=== PATIENT | male | born 1955 | race Caucasian/White ===

== ENCOUNTER 2018-11-13 23:23 | Inpatient (IN) | payer BC ==
[~2018-11-13] VITALS: Ht 185.4 cm; Wt 91.0 kg
[2018-11-13] MEDS ORDERED: AMLO10TA5 PO (23:34)
[2018-11-13 23:58] LABS: INR 1.01
[2018-11-13 23:59] LABS: PARTIAL THROMBOPLASTIN TIME 27.1 SECONDS (25.0-38.4)
[2018-11-14] VITALS (10 sets, daily range): BP systolic 120–185; BP diastolic 70–94
--- NOTE | 2018-11-14 00:09 | REPVR ---
EXAM: CT Head Without Contrast EXAM DATE/TIME: 11/13/2018 11:47 PM CLINICAL HISTORY: 63 years old, male; Unresponsive; Additional info: CVA - nursing interventions must not delay CT TECHNIQUE: Imaging protocol: Computed tomography images of the head without contrast. Radiation optimization: All CT scans at this facility use at least one of these dose optimization techniques: automated exposure control; mA and/or kV adjustment per patient size (includes targeted exams where dose is matched to clinical indication); or iterative reconstruction. Other technique: STROKE PROTOCOL was implemented. COMPARISON: No relevant prior studies available. FINDINGS: Brain: There is no evidence for an acute large vessel territorial infarct, intracranial hemorrhage, mass, mass effect, or herniation. There is a wedge-shaped area of low-attenuation in the right parietal lobe with associated ex vacuo dilatation of the right lateral ventricle, which is compatible with a chronic infarct. There are mild non-specific foci of low attenuation in the periventricular white matter, which are likely the sequela of chronic small vessel ischemic injury. Brainstem: Unremarkable. Midline shift: There is no midline shift. Ventricles: The ventricles are moderately dilated in proportion to the sulci, which is compatible with moderate generalized cerebral volume loss. Bones/joints: Unremarkable. No acute fracture. Sinuses: Visualized sinuses are unremarkable. No fluid levels. Mastoid air cells: Visualized mastoid air cells are well aerated. No mastoid effusion. Soft tissues: Unremarkable. IMPRESSION: 1. No acute intracranial abnormality. 2. Chronic infarct involving the right parietal lobe. 3. Mild periventricular white matter changes, which are likely the sequela of chronic small vessel ischemic injury. ASSESSMENT: ASPECTS ([facility]ianna Stroke Program Early CT Score) is 10. Electronically signed by: Bakari Calderon On 11/14/2018 00:08:33 AM
[2018-11-14 00:10] LABS: BLOOD UREA NITROGEN 19 MG/DL (7-18); CALCIUM LEVEL 9.4 MG/DL (8.8-10.2); CARBON DIOXIDE LEVEL 26 MEQ/L (21-32); CHLORIDE LEVEL 102 MEQ/L (98-107); CPK CREATINE PHOSPHOKINASE 637 U/L (39-308); CREATININE FOR GFR 1.18 MG/DL (0.70-1.30); GLOMERULAR FILTRATION RATE > 60.0 (>49); GLUCOSE, FASTING 148 MG/DL (70-100); MB/CK RELATIVE INDEX 0.78 (< OR =4); POTASSIUM SERUM 4.2 MEQ/L (3.5-5.1); SODIUM LEVEL 136 MEQ/L (136-145); TROPONIN I < 0.02 NG/ML (< 0.10)
[2018-11-14 00:13] LABS: BASO # 0.1 10^3/uL (0.0-0.2); BASO % 0.5 % (0.0-1.0); EOS % 0.1 % (0.0-3.0); HEMATOCRIT 41.6 % (42.0-52.0); HEMOGLOBIN 14.8 g/dl (13.5-17.5); LYMPH # 0.6 10^3/uL (1.5-4.5); LYMPH % 6.6 % (24.0-44.0); MEAN CORPUSCULAR HEMOGLOBIN 33.3 pg (27.0-33.0); MEAN CORPUSCULAR HGB CONC 35.6 g/dl (32.0-36.5); MEAN CORPUSCULAR VOLUME 93.5 fl (80.0-96.0); MONO # 0.6 10^3/uL (0.0-0.8); MONO % 5.6 % (0.0-5.0); NEUTROPHILS # 8.4 10^3/uL (1.8-7.7); NEUTROPHILS % 86.5 % (36.0-66.0); PLATELET COUNT, AUTOMATED 275 10^3/uL (150-450); RED BLOOD COUNT 4.45 10^6/uL (4.30-6.10); WHITE BLOOD COUNT 9.8 10^3/uL (4.0-10.0)
--- NOTE | 2018-11-14 00:17 | REPVR ---
EXAM: CT Cervical Spine Without Contrast EXAM DATE/TIME: 11/13/2018 11:47 PM CLINICAL HISTORY: 63 years old, male; Injury or trauma; Fall; Initial encounter; Blunt trauma TECHNIQUE: Imaging protocol: Computed tomography images of the cervical spine without contrast. Coronal and sagittal reformatted images were created and reviewed. Radiation optimization: All CT scans at this facility use at least one of these dose optimization techniques: automated exposure control; mA and/or kV adjustment per patient size (includes targeted exams where dose is matched to clinical indication); or iterative reconstruction. COMPARISON: No relevant prior studies available. FINDINGS: Vertebrae: There is straightening of the normal cervical lordosis. The atlantooccipital alignment is normal. The atlantoaxial alignment is normal. There are degenerative changes of the atlantoaxial joint. There is no fracture. The vertebral body heights are preserved. There is no cervical rib. C2-C3: The disc height is preserved. There is a broad central protrusion. No spinal canal stenosis or neural foraminal stenosis is identified. The facet joints are normal. C3-C4: The disc height is preserved. There is a broad-based posterior disc osteophyte complex, bilateral uncovertebral hypertrophy, severe osteoarthritis of the right facet joint, and mild osteoarthritis of the left facet joint. There is mild spinal canal stenosis, [id number] right neural foraminal stenosis, and mild left neural foraminal stenosis. C4-C5: The disc height is preserved. There is a broad-based posterior protrusion, severe osteoarthritis of the left facet joint, mild osteoarthritis of the right facet joint, and endplate spurs projecting anteriorly. There is mild left neural foraminal stenosis. No spinal canal stenosis or right neural foraminal stenosis is noted. C5-C6: The disc height is preserved. There is a 3 mm grade 1 anterolisthesis of C5 on C6 with uncovering of the disc posteriorly, severe osteoarthritis of the right facet joint, and endplate spurs projecting anteriorly. There is mild to moderate right neural foraminal stenosis. No spinal canal stenosis or left neural foraminal stenosis is noted. C6-C7: There is moderate loss of disc height, a broad-based posterior disc osteophyte complex, left uncovertebral hypertrophy, and endplate spurs projecting anteriorly. There is mild spinal canal stenosis and mild left neural foraminal stenosis. No right neural foraminal stenosis is noted. C7-T1: The disc height is preserved. No disc herniation, spinal canal stenosis, or neural foraminal stenosis is identified. The facet joints are normal. Soft tissues: Unremarkable. No soft tissue fluid collection is noted. Prevertebral Space: No prevertebral soft tissue swelling is noted. Vasculature: There are atherosclerotic calcifications of the carotid bulbs. IMPRESSION: 1. No fracture in the cervical spine. 2. C3-C4: Mild spinal canal stenosis, moderate to severe right neural foraminal stenosis and mild left neural foraminal stenosis. 3. C4-C5: Mild left neural foraminal stenosis. 4. C5-C6: Mild to moderate right neural foraminal stenosis. 5. C6-C7: Mild spinal canal stenosis and mild left neural foraminal stenosis. Electronically signed by: Bakari Calderon On 11/14/2018 00:17:27 AM
[2018-11-14 00:40] LABS: ETHYL ALCOHOL (ETHANOL) < 0.003 % (0.000-0.010)
[2018-11-14] MEDS ORDERED: MULTIVITAMIN -ADULT INJECTION 10 ML, THIAMINE INJection 100 MG, FOLIC ACID 1 MG in NS 1... IV ONE (00:45)
[2018-11-14 00:57] LABS: ALBUMIN 3.7 GM/DL (3.2-5.2); ALT/SGPT 46 U/L (12-78); BILIRUBIN,DIRECT 0.3 MG/DL (0.0-0.2); TOTAL PROTEIN 7.2 GM/DL (6.4-8.2)
[2018-11-14] MEDS ORDERED: LORazepam 2 MG TAB PO ONE (01:30)
[2018-11-14] MEDS ORDERED: ONDANSETRON 4MG/2ML VIAL (J2405) IV PRN (01:30)
--- NOTE | 2018-11-14 01:34 | HPEPDOC ---
[facility] Medical History & Physical Date of Admission Nov 14, 2018 Date of Service: Nov 14, 2018 Primary Care Physician: A Other Provider PCP in [place] Attending Physician: DION FAN MD History and Physical Time of service 2:10 AM CHIEF COMPLAINT: Seizure HISTORY OF PRESENT ILLNESS: Mr. Young is a 63-year-old male who was brought to the ED by EMS after having an unwitnessed seizure. According to his the patient has a history of alcoholism but had stopped drinking until yesterday when he drank a lot; she was unable to quantify how much he drank. This evening while she was walking past the bedroom, she heard grunting, when she went into the room, she found him lying on the bed, and he appeared confused. There was blood on the pillow and it appeared that had bitten his tongue and he had urinary incontinence. Per discussion with the ED attending, when EMS found him he was very combative. Currently the patient only oriented to person and place but not date; he does not remember any of these events reports that he quit drinking a long time ago but is unable to say how long ago. He denies having fevers, chills, cough, cold, or any other acute illness recently. Of note, he is on vacation and resides in [place]. REVIEW OF SYSTEMS: 12 point review of systems negative except as listed in HPI PAST MEDICAL/SURGICAL HISTORY: 1. Chronic hypertension 2. 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 Remote history of alcoholism with binge drinking recently. FAMILY HISTORY: Hypertension. Denies family history of diabetes or cancer ALLERGIES: Please see below. HOME MEDICATIONS: Please see below. PHYSICAL EXAMINATION: VITAL SIGNS: Pressure 90.6, pulse 86, blood pressure 149/79, O2 sats 96% on room air GENERAL APPEARANCE: Well-nourished, well-developed, does not appear toxic HEENT: Normocephalic, atraumatic, mucous membranes moist and pink, tongue has lacerations CARDIOVASCULAR: Regular rate and rhythm, no murmurs, rubs or gallops, radial pulses are intact, there is no lower extremity edema LUNGS: There is equal air entry bilaterally, the lungs are clear to auscultation on room air ABDOMEN: Bowel sounds are present, the abdomen is soft and nontender on palpation MUSCULOSKELETAL: Range of motion is intact in all 4 extremities INTEGUMENT: The patient has simpson lines on his face and on his lower arms NEUROLOGICAL: Cranial nerves II-12 are grossly intact, speech is not dysarthric, strength is 5 out of 5 in all extremities, biceps and patellar tendon reflexes are +1 bilaterally. There is no ankle clonus, Babinski is negative bilaterally PSYCHIATRIC: The patient is alert and oriented to person, place. His verbal responses slow. He is able to understand and follow commands LABORATORY DATA: CBC is unremarkable. Chemistries remarkable for BUN of 19, glucose of 148, lactic acid of 2.9, and CPK of 637 IMAGING: CT of the head shows an old right parietal lobe infarct and mild periventricular white matter changes which are the sequelae of small vessel ischemic injury CT of the cervical spine is negative for any acute process. Chest x-ray is pending, but based on personal visualization unremarkable MICROBIOLOGY: Please see below. ASSESSMENT: Mr. Young is a 63-year-old male the past history of hypertension and right henry etal lobe CVA without residual deficits, who will be admitted for evaluation of new-onset seizure. PLAN: 1. Todds Paresis after seizure, resolving The lactic acid and and CPK elevated 2/[address] of the head shows an old parietal lobe infarct which may be the foci is of seizure activity. The neurological exam is nonfocal Plan: admit to PCU / fall precautions/ seizure precautions/ frequent neuro checks / f/u UA, Urine drug screen, EEG, trend CPK and f/u renal function / day time team can f/u w the Neurologist prior to starting anti-epileptic / Ativan per w/d protocol 2. Binge Drinking -AST elevated 2/2 drinking Plan: Telemetry / alcohol w/d protocol / seizure precautions / fall precautions / Thiamine 100mg daily, Folic acid 1mg daily, MVI / IVF / Ativan per w/d protocol / zofran for n/v 3..Chronic HTN Plan: c/w home meds 4. CVA without residual deficits. Plan:f/u A1C and lipid panel / start aspirin and statin DVT Px w SCDs Disposition pending clinical course Laboratory Data CBC/BMP Laboratory Tests 11/13/18 23:39 Red Blood Count 4.45, Mean Corpuscular Volume 93.5, Mean Corpuscular Hemoglobin 33.3 H, Mean Corpuscular Hemoglobin Concent 35.6, Red Cell Distribution Width 12.4, Neutrophils (%) (Auto) 86.5 H, Lymphocytes (%) (Auto) 6.6 L, Monocytes (%) (Auto) 5.6 H, Eosinophils (%) (Auto) 0.1, Basophils (%) (Auto) 0.5, Neutrophils # (Auto) 8.4 H, Lymphocytes # (Auto) 0.6 L, Monocytes # (Auto) 0.6, Eosinophils # (Auto) 0.0, Basophils # (Auto) 0.1, Calcium Level 9.4, Total Creatine Kinase 637 H Home Medications Scheduled Amlodipine Besylate (Amlodipine Besylate) 10 Mg Tablet, 10 MG PO DAILY Allergies Coded Allergies: No Known Drug Allergies (Verified Allergy, Unknown, 11/13/18) A-FIB/CHADSVASC A-FIB History Current/History of A-Fib/PAF?: No Current PO Anticoag Therapy: No DION FAN MD Nov 14, 2018 01:34
[2018-11-14 03:10] LABS: AMPHETAMINES LEVEL URINE NEGATIVE (NEGATIVE); BARBITURATES URINE NEGATIVE (NEGATIVE); BENZODIAZEPINES URINE POSITIVE (NEGATIVE); CANNABINOIDS URINE NEGATIVE (NEGATIVE); COCAINE METABOLITE URINE NEGATIVE (NEGATIVE); METHADONE URINE NEGATIVE (NEGATIVE); OPIATES URINE NEGATIVE (NEGATIVE); PHENCYCLIDINE URINE NEGATIVE (NEGATIVE)
[2018-11-14] MEDS: NS 1,000 ML IV SCH ×3 (03:18→15:32)
[2018-11-14 05:15] LABS: HEMOGLOBIN A1c 5.6 %
[2018-11-14 05:18] LABS: CHOLESTEROL RISK RATIO 3.754 (<5)
[2018-11-14] MEDS: LORazepam 2 MG TAB PO SCH ×2 (06:40→10:00)
[2018-11-14] MEDS ORDERED: THIAMINE 100 MG TAB PO SCH (09:00)
--- NOTE | 2018-11-14 09:50 | REP ---
HISTORY: Stroke-like symptoms. COMPARISON: None. The technique utilized in obtaining the radiograph has magnified the cardiac silhouette and accentuated the interstitial markings. The superior mediastinal structures are midline. The cardiac silhouette is unremarkable in size, shape, and position. The diaphragmatic surfaces of the lungs are regular, and the costophrenic angles are clear. The pulmonary mckeon are clear. The imaged osseous structures are intact. IMPRESSION: There is no acute cardiopulmonary disease. Electronically Signed by Karsten Robertson DO 11/14/2018 10:06 A
[2018-11-14] MEDS: ATORVASTATIN 20 MG TAB PO SCH (10:14)
[2018-11-14] MEDS: ASPIRIN 81 MG ENTERIC TAB PO SCH (10:14)
[2018-11-14] MEDS: MULTIVITAMINS/MINERALS THERAP 1 TAB PO SCH (10:14)
[2018-11-14] MEDS: FOLIC ACID 1 MG TAB PO SCH (10:14)
[2018-11-14] MEDS: amLODIPine 10 MG TAB PO SCH (10:15)
[2018-11-14] MEDS: OXAZEPAM 15 MG CAP PO PRN (18:50)
[2018-11-14] MEDS ORDERED: PROHANCE 279.3MG/ML 5ML VIAL (A9576) As Ordered ONE (19:46)
[2018-11-14] MEDS ORDERED: PROHANCE 279.3MG/ML 15ML VIAL (A9576) As Ordered ONE (19:47)
[2018-11-14] MEDS ORDERED: LORazepam 2 MG/ML VIAL (J2060) As Ordered ONE ×2 (20:31→22:14)
[2018-11-14] MEDS ORDERED: LORazepam 2 MG/ML VIAL (J2060) IV STA ×3 (20:32→22:11)
--- NOTE | 2018-11-14 21:33 | ECGEPIP ---
[facility] - ED Test Date: 2018-11-13 Pat Name: HERMELINDO HENDERSON Department: Room: 04-07 Gender: Male Informatics Spec: ISIS : [id number] Requested By: ROBERT HOFFMANN Order Number: [id number] Reading MD: Lata Samuel Measurements Intervals Glennie Rate: 94 P: 19 MN: 180 QRS: -34 QRSD: 101 T: 30 QT: 360 QTc: 452 Interpretive Statements SINUS RHYTHM MARKED LEFT AXIS DEVIATION NO PRIOR Electronically Signed on 11-14-2018 21:33:22 EDT by Lata Samuel
[2018-11-14] MEDS: AUGMENTIN 875 MG TAB PO SCH (21:37)
[2018-11-14] MEDS ORDERED: HALOPERIDOL 5 MG/ML VIAL (J1630) As Ordered ONE (22:06)
[2018-11-14] MEDS ORDERED: MIDAZOLAM INJ 2 MG/2 ML VIAL (J2250) As Ordered ONE (22:09)
[2018-11-14] MEDS ORDERED: HALOPERIDOL 5 MG/ML VIAL (J1630) IM STA (22:11)
[2018-11-14] MEDS ORDERED: dexmedeTOMidine 200 MCG in APPROPRIATE DILUENT 1 EA IV STA (22:15)
[2018-11-14] MEDS ORDERED: THIAMINE HCL 200 MG/2 ML VIAL (J3411) IV ONE (22:30)
--- NOTE | 2018-11-14 22:55 | REPVR ---
EXAM: MR Head Without Contrast EXAM DATE/TIME: 11/14/2018 9:25 PM CLINICAL HISTORY: 63 years old, male; Altered mental status/memory loss and other: Seizure; Confusion or disorientation TECHNIQUE: Imaging protocol: MR of the head without contrast. COMPARISON: CT Head without contrast 11/13/2018 11:44 PM FINDINGS: Examination significantly limited by patient motion. On diffusion weighted sequences, there is a small focus of restricted diffusion in the subcortical right occipital lobe measuring less than 5 mm. Findings are consistent with a small area of acute/subacute infarction. No other evidence of restricted diffusion. There are no intra-or extra-axial hemorrhages or fluid collections. There is no mass effect or midline shift. Ventricles are moderately dilated for age. On FLAIR sequences, there appears to be mild to moderate chronic ischemic changes in the periventricular deep white matter. There are no definite focal parenchymal abnormalities. Midline craniocervical structures are grossly normal. Normal flow voids are identified in the major intracranial arteries. Paranasal sinuses and mastoid air cells are clear. IMPRESSION: Examination is significantly limited by patient motion. Small focus of restricted diffusion in the subcortical right occipital lobe measuring less than 5 mm consistent with small area of acute infarction. Probable generalized atrophy and chronic ischemic changes. No other acute intracranial process. No definite intracranial hemorrhage. Electronically signed by: Stef Mora On 11/14/2018 22:54:42 PM
[2018-11-15] VITALS (47 sets, daily range): BP systolic 111–184; BP diastolic 65–85
[2018-11-15] MEDS ORDERED: LORazepam 2 MG TAB PO SCH (04:00)
[2018-11-15] MEDS: dexmedeTOMidine 200 MCG in APPROPRIATE DILUENT 1 EA IV SCH ×6 (04:00→22:19)
[2018-11-15 04:38] LABS: HEMATOCRIT 42.7 % (42.0-52.0); HEMOGLOBIN 14.5 g/dl (13.5-17.5); MEAN CORPUSCULAR HEMOGLOBIN 33.3 pg (27.0-33.0); MEAN CORPUSCULAR VOLUME 97.9 fl (80.0-96.0); PLATELET COUNT, AUTOMATED 221 10^3/uL (150-450); RED BLOOD COUNT 4.36 10^6/uL (4.30-6.10); WHITE BLOOD COUNT 9.1 10^3/uL (4.0-10.0)
[2018-11-15 05:28] LABS: BLOOD UREA NITROGEN 11 MG/DL (7-18); CALCIUM LEVEL 8.6 MG/DL (8.8-10.2); CARBON DIOXIDE LEVEL 24 MEQ/L (21-32); CHLORIDE LEVEL 111 MEQ/L (98-107); CREATININE FOR GFR 0.82 MG/DL (0.70-1.30); GLOMERULAR FILTRATION RATE > 60.0 (>49); GLUCOSE, FASTING 118 MG/DL (70-100); POTASSIUM SERUM 3.8 MEQ/L (3.5-5.1); SODIUM LEVEL 140 MEQ/L (136-145)
[2018-11-15] MEDS: LORazepam 2 MG/ML VIAL (J2060) IV PRN ×2 (05:30→20:26)
[2018-11-15] MEDS: NS 1,000 ML IV SCH ×2 (06:06→14:25)
[2018-11-15] MEDS: ASPIRIN 81 MG ENTERIC TAB PO SCH (08:29)
[2018-11-15] MEDS: amLODIPine 10 MG TAB PO SCH (08:29)
[2018-11-15] MEDS: FOLIC ACID 1 MG TAB PO SCH (08:29)
[2018-11-15] MEDS: AUGMENTIN 875 MG TAB PO SCH ×2 (08:29→20:21)
[2018-11-15] MEDS: ATORVASTATIN 20 MG TAB PO SCH (08:29)
[2018-11-15] MEDS: THIAMINE 100 MG TAB PO SCH ×2 (08:30→20:21)
[2018-11-15] MEDS: MULTIVITAMINS/MINERALS THERAP 1 TAB PO SCH (08:30)
[2018-11-15] MEDS ORDERED: MULTIVITAMINS/MINERALS THERAP 1 TAB PO SCH (09:00)
[2018-11-15] MEDS ORDERED: FOLIC ACID 1 MG TAB PO SCH (09:00)
[2018-11-15] MEDS ORDERED: ACETAMINOPHEN TAB 650MG DOSE (2X325MG) PO PRN (16:15)
--- NOTE | 2018-11-15 16:55 | IPNPDOC ---
Date Seen The patient was seen on 11/15/18. Progress Note SUBJECTIVE: Patient is a 63-year-old male with a history of hypertension who presented to the ED with an unwitnessed seizure and possible alcohol withdrawal, and was found to have a possible right parietal infarct, acute versus chronic. Patient was seen and examined in his room this morning. Patient is on Precedex drip and is fairly sedated. He is arousable but does not converse well. Unable to obtain further history. OBJECTIVE: PHYSICAL EXAMINATION: VITAL SIGNS: Please see below. GENERAL: Sedated, but arousable, appears comfortable, in no acute distress HEENT: PERRLA, moist basis membranes, no JVD, tongue with lesion across the dorsal surface of the tongue with swelling CARDIOVASCULAR:. Regular rate and rhythm. Normal S1 and S2, no murmurs, rubs or gallops. RESPIRATORY: Good air entry bilaterally. Clear to auscultation bilaterally w ithout wheezing, rhonchi or rales ABDOMINAL:. Soft, nondistended, bowel sounds present, no masses or hepatosplenomegaly appreciated. Unable to ask patient about tenderness EXTREMITIES:. No cyanosis or edema. Pulses 2+/4 in the radial and dorsalis pedis arteries NEUROLOGICAL: Unable to assess at time of exam due to sedation. PSYCHOLOGICAL: Unable to assess at time of exam due to sedation LABORATORY DATA, IMAGING STUDIES, MICROBIOLOGY: Please see below. ASSESSMENT AND PLAN: This is a 63-year-old male with a history of hypertension who presented to the ED with an unwitnessed seizure and possible alcohol withdrawal, and was found to have a possible right parietal infarct, acute versus chronic. PROBLEMS: 1. Right parietal lobe infarct, acute versus chronic CT scan suggested old infarct while MRI suggested acute infarct, MRI was a poor study due to pt movement. Altered mental status and inappropriate/aggressive behavior, which is fluctuant. Check A1c and lipid panel for risk factors, start aspirin and stain Fall precautions, frequent neuro checks Neurology consulted, appreciate their input and recommendations 2. Unwitnessed seizure. likely seizure considering tongue bitting and urinary incontinence Elevated lactic acid level and CPK EEG performed, pending results. Seizure precautions, frequent neuro checks Neurology consulted, appreciate their input and recommendations 3. Binge drinking. [facility] protocol - thiamine, folic acid, multivitamin 4. Hypertension. Continue home medications 5. DVT prophylaxis Teds and SCDs DISPOSITION: Admitted to ICU pending clinical improvement VS, I&O, 24H, Fishbone Vital Signs/I&O Vital Signs Date Time Temp Pulse Resp B/P (MAP) Pulse Ox O2 Delivery O2 Flow Rate FiO2 11/15/18 12:00 2.0 11/15/18 12:00 99.2 71 22 169/79 (109) 98 11/14/18 15:00 Room Air I&O- Last 24 Hours up to 6 AM 11/15/18 05:59 Intake Total 300 ml Output Total 2355 ml Balance -2055 ml Laboratory Data 24H LABS Laboratory Tests 2 11/15/18 04:27: Nucleated Red Blood Cells % (auto) 0.0, Anion Gap 5L, Glomerular Filtration Rate > 60.0, Blood Urea Nitrogen 11, Creatinine 0.82, Sodium Level 140, Potassium Level 3.8, Chloride Level 111H, Carbon Dioxide Level 24, Calcium Level 8.6L CBC/BMP Laboratory Tests 11/15/18 04:27 Red Blood Count 4.36, Mean Corpuscular Volume 97.9 H, Mean Corpuscular Hemoglobin 33.3 H, Mean Corpuscular Hemoglobin Concent 34.0, Red Cell Distribution Width 12.5, Calcium Level 8.6 L AMELIE JOSHI PGY-1 Nov 15, 2018 13:42
[2018-11-15] MEDS ORDERED: levETIRAcetam INJection 500 MG in D5W MINI-BAG PLUS 100 ML IV SCH (18:00)
[2018-11-15] MEDS: OXAZEPAM 15 MG CAP PO PRN (18:19)
[2018-11-15] MEDS ORDERED: ISOVUE-370 76% 100ML VIAL (Q9967) As Ordered ONE ×2 (19:19→21:26)
--- NOTE | 2018-11-15 19:35 | EEG ---
DATE OF PROCEDURE: 11/14/2018 REFERRING PHYSICIAN: Dr. Lyle DIAGNOSIS: Seizure. EEG NUMBER: [id number] HISTORY: The patient is a 63-year-old man with a history of alcoholism who was admitted at [facility] due to a seizure with tongue biting and urinary incontinence. This EEG was done to rule out epileptic potential. He is currently taking Ativan, thiamine, folic acid, amlodipine, etc. TECHNICAL DESCRIPTION: This digital EEG was recorded by 21 scalp, ear and two EKG electrodes and was reviewed in bipolar and referential montages following reformatting in 10-20 international electrode placement system. INTERPRETATION: The patient was noted to be in awake and drowsy states during this EEG. Resting awake background rhythm consisted of well-formed posterior dominant rhythm with anterior/posterior gradient comprising of 11 Hz alpha activity measuring 15-40 microvolts in amplitude. Attenuation of posterior dominant rhythm was seen during transition into drowsiness. Stage I and II sleep were reviewed and were symmetric bilaterally. Hyperventilation could not be performed. Photic stimulation remained unremarkable. EKG revealed normal sinus rhythm. No focal, lateralizing or epileptiform abnormalities were seen. Frequent right mid temporal and central benign small sharp spikes were seen, which are a normal variant. CONCLUSION: This EEG in awake, drowsy states, stage I and II sleep is within normal limits.
--- NOTE | 2018-11-15 21:05 | REPVR ---
EXAM: CT Angiography Neck With Contrast EXAM DATE/TIME: 11/15/2018 7:25 PM CLINICAL HISTORY: 63 years old, male; Other: AMS; Additional info: Altered mental status TECHNIQUE: Imaging protocol: Axial computed tomographic angiography images of the neck with intravenous contrast using CT angiography protocol. Coronal and sagittal reformatted images were created and reviewed. 3D rendering: MIP reconstructed images were created and reviewed. Radiation optimization: All CT scans at this facility use at least one of these dose optimization techniques: automated exposure control; mA and/or kV adjustment per patient size (includes targeted exams where dose is matched to clinical indication); or iterative reconstruction. Contrast material: ISOVUE 370;Contrast volume: 100 ml;Contrast route: IV; COMPARISON: MRI-Brain without Contrast 11/14/2018 7:52:45 PM COMPARISON MORE: CT Spine,cervical w/o contrast 11/13/2018 11:44:37 PM FINDINGS: VASCULATURE: Right common carotid artery: The proximal right common carotid artery is poorly assessed due to beam hardening artifact. The right common carotid artery, as visualized, is patent. Right internal carotid artery: Noncalcified plaque at the right carotid bulb causes mild stenosis. Right external carotid artery: Unremarkable. No occlusion or stenosis of the origin. Right vertebral artery: Unremarkable. No stenosis. No dissection or occlusion. Left common carotid artery: Unremarkable. No stenosis. No dissection or occlusion. Left internal carotid artery: Proximal left ICA atherosclerosis does not contribute to stenosis. Left external carotid artery: Unremarkable. No occlusion or stenosis of the origin. Left vertebral artery: Unremarkable. No stenosis. No dissection or occlusion. Aorta: A prominent triangular region of hypodensity at the anterior aspect of the thoracic aortic arch on image 1. Recommend a CTA chest to assess the presence or absence of an underlying dissection. NECK: Oropharynx: There are postinfectious postinflammatory calcifications in the palatine tonsils. Bones/joints: No acute fracture. Soft tissues: Unremarkable. No significant soft tissue swelling. Lungs: There is a small area of consolidation in the posterior right lung apex, potentially an area of infectious or aspiration related pneumonia. IMPRESSION: 1. A prominent triangular region of hypodensity at the anterior aspect of the thoracic aortic arch on image 1. Recommend a CTA chest to assess the presence or absence of an underlying dissection. 2. There is a small area of consolidation in the posterior right lung apex, potentially an area of infectious or aspiration related pneumonia. 3. No acute vascular findings or significant stenoses in the neck. COMMENT: Reference per NASCET criteria for degree of stenosis: Mild: less than 50% stenosis. Moderate: 50-69% stenosis. Severe: 70-94% stenosis. Near occlusion: 95-99% stenosis. THIS REPORT CONTAINS FINDINGS THAT MAY BE CRITICAL TO PATIENT CARE. The findings regarding the thoracic aorta were verbally communicated via telephone conference with Dr. Lyle at 9:00 PM EDT on 11/15/2018. The findings were acknowledged and understood. Electronically signed by: Wendy Flores On 11/15/2018 21:05:03 PM
--- NOTE | 2018-11-15 21:11 | REPVR ---
EXAM: CT Angiography Head With Contrast EXAM DATE/TIME: 11/15/2018 7:25 PM CLINICAL HISTORY: 63 years old, male; Pain; Headache; Additional info: Acute stroke, altered mental status TECHNIQUE: Imaging protocol: Computed tomographic angiography images of the head with intravenous contrast using CT angiography protocol. Coronal and sagittal reformatted images were created and reviewed. 3D rendering: MIP and 3D reconstructed images were created and reviewed. Radiation optimization: All CT scans at this facility use at least one of these dose optimization techniques: automated exposure control; mA and/or kV adjustment per patient size (includes targeted exams where dose is matched to clinical indication); or iterative reconstruction. Contrast material: ISOVUE 370;Contrast volume: 100 ml;Contrast route: IV; COMPARISON: CT Head without contrast 11/13/2018 11:44 PM MRI-Brain without Contrast 11/14/2018 7:52:45 PM FINDINGS: Right internal carotid artery: Unremarkable. Intracranial segment is patent with no significant stenosis. No aneurysm. Right anterior cerebral artery: Unremarkable. No occlusion or significant stenosis. No aneurysm. Right middle cerebral artery: Unremarkable. No occlusion or significant stenosis. No aneurysm. Right posterior cerebral artery: Unremarkable. No occlusion or significant stenosis. No aneurysm. Right vertebral artery: Unremarkable. No occlusion or significant stenosis. No aneurysm. Left internal carotid artery: Unremarkable. Intracranial segment is patent with no significant stenosis. No aneurysm. Left anterior cerebral artery: Unremarkable. No occlusion or significant stenosis. No aneurysm. Left middle cerebral artery: Unremarkable. No occlusion or significant stenosis. No aneurysm. Left posterior cerebral artery: Patent. origin of the left posterior cerebral artery. Left vertebral artery: Unremarkable. No occlusion or significant stenosis. No aneurysm. Basilar artery: Unremarkable. No occlusion or significant stenosis. No aneurysm. Polypoid mucosal disease in inferior left maxillary sinus most likely related to maxillary dental disease. Left maxillary molar periapical lucency causes dehiscence of the maxillary sinus floor; a peripherally mineralized radicular cyst may be present extending into the sinus. IMPRESSION: No major proximal vessel branch occlusion seen. Electronically signed by: Wendy Flores On 11/15/2018 21:11:20 PM
--- NOTE | 2018-11-15 21:51 | DS.PDOC ---
Discharge Summary General Date of Admission Nov 14, 2018 at approx 2AM Date of Discharge Nov 15 915PM Attending Physician: DION FAN MD Vital Signs/I&Os Vital Signs Date Time Temp Pulse Resp B/P (MAP) Pulse Ox O2 Delivery O2 Flow Rate FiO2 11/15/18 20:03 98.2 64 146/80 (102) 97 2.0 11/15/18 16:00 22 11/14/18 15:00 Room Air I&O- Last 24 Hours up to 6 AM 11/15/18 06:00 Intake Total 300 ml Output Total 2355 ml Balance -2055 ml Laboratory Data Labs 24H Laboratory Tests 2 11/15/18 04:27: Nucleated Red Blood Cells % (auto) 0.0, Anion Gap 5L, Glomerular Filtration Rate > 60.0, Blood Urea Nitrogen 11, Creatinine 0.82, Sodium Level 140, Potassium Level 3.8, Chloride Level 111H, Carbon Dioxide Level 24, Calcium Level 8.6L CBC/BMP Laboratory Tests 11/15/18 04:27 Red Blood Count 4.36, Mean Corpuscular Volume 97.9 H, Mean Corpuscular Hemoglobin 33.3 H, Mean Corpuscular Hemoglobin Concent 34.0, Red Cell Distribution Width 12.5, Calcium Level 8.6 L Discharge Medications Scheduled Amlodipine Besylate (Amlodipine Besylate) 10 Mg Tablet, 10 MG PO DAILY, (Reported) Allergies Coded Allergies: No Known Drug Allergies (Verified Allergy, Unknown, 11/13/18) DION FAN MD Nov 15, 2018 21:51
--- NOTE | 2018-11-15 22:16 | REPVR ---
EXAM: CT Angiography Chest With Contrast EXAM DATE/TIME: 11/15/2018 9:40 PM CLINICAL HISTORY: 63 years old, male; Abnormal findings; Additional info: F/u on abnormal thoracic aorta TECHNIQUE: Imaging protocol: Axial computed tomographic angiography images of the chest with intravenous contrast using CT angiography protocol. Coronal and sagittal reformatted images were created and reviewed. 3D rendering: MIP reconstructed images were created and reviewed. Radiation optimization: All CT scans at this facility use at least one of these dose optimization techniques: automated exposure control; mA and/or kV adjustment per patient size (includes targeted exams where dose is matched to clinical indication); or iterative reconstruction. Contrast material: ISOVUE 370;Contrast volume: 75 ml;Contrast route: IV; COMPARISON: CR PORTABLE CHEST X-RAY 11/13/2018 11:55 PM FINDINGS: Pulmonary arteries: Normal. No pulmonary emboli. Aorta: An area of abnormality was noted in the ascending aorta on prior neck CTA. This is fully visualized on the current scan. This does not appear to be an intimal flap. It is a large area of plaque with a central ulceration as seen on series 401 images 35-44. No aneurysm or dissection. This ulcerated plaque is within the ascending aorta. There is less than 40% stenosis. Lungs: There is posterior bilateral atelectasis. There is a small area of atelectasis or infiltrate in the right upper lobe. Pleural space: Unremarkable. No pneumothorax. No pleural effusion. Heart: Unremarkable. No cardiomegaly. No pericardial effusion. Lymph nodes: Unremarkable. No enlarged lymph nodes. Bones/joints: Unremarkable. No acute fracture. Soft tissues: Unremarkable. IMPRESSION: 1. Large ulcerated plaque in the ascending aorta. 2. No evidence of thoracic aortic aneurysm or dissection. 3. Bilateral areas posterior atelectasis. Small area of atelectasis or pneumonia in the right upper lobe. Electronically signed by: Chase Patton On 11/15/2018 22:15:59 PM
--- NOTE | 2018-11-15 22:21 | DS.PDOC ---
Discharge Summary General Date of Admission Nov 14, 2018 at approximately 2 AM Date of Discharge Nov 15 2108 at 10:50PM Specialist/Consultants Involve: DION FAN MD Specialist/Consultants Involve Dr.Johnson Suarez Discharge Summary Time of service 9:10 PM PROCEDURES PERFORMED DURING STAY: [None]. ADMITTING DIAGNOSES: 1. Seizure DISCHARGE DIAGNOSES: 1. Plaque in ascending aorta 2. Subacute right parietal lobe infarct COMPLICATIONS/CHIEF COMPLAINT: Seizure. HISTORY OF PRESENT ILLNESS: Per HPI"Mr. Young is a 63-year-old male who was brought to the ED by EMS after having an unwitnessed seizure. According to his the patient has a history of alcoholism but had stopped drinking until yesterday when he drank a lot; she was unable to quantify how much he drank. This evening while she was walking past the bedroom, she heard grunting, when she went into the room, she found him lying on the bed, and he appeared confused. There was blood on the pillow and it appeared that had bitten his tongue and he had urinary incontinence. Per dis cussion with the ED attending, when EMS found him he was very combative. Currently the patient only oriented to person and place but not date; he does not remember any of these events reports that he quit drinking a long time ago but is unable to say how long ago. He denies having fevers, chills, cough, cold, or any other acute illness recently. Of note, he is on vacation and resides in [place]." HOSPITAL COURSE: Shortly after arrival on PCU the patient was agitated. He was transferred to ICU, and started on Precedex. MRI of the brain confirmed the presence of a subacute infarct at the right parietal lobe. CTA of the neck showed a possible acute dissection of the thoracic aorta while CTA of the chest a plaque w/o rupture in the ascending aorta. Per Dr. Yanez the patient was transferred out for higher level of care. He was accepted at [facility] in [facility]. DISCHARGE MEDICATIONS: Please see below. ALLERGIES: Please see below. PHYSICAL EXAMINATION ON DISCHARGE: VITAL SIGNS: Please see below. GENERAL: Sedated HEENT: MMM&P NC in place RESPIRATORY EXAMINATION: snoring LABORATORY DATA: Please see below. IMAGING: see permanent medical records PROGNOSIS: Guarded ACTIVITY: [As tolerated]. DIET: Nothing by mouth DISCHARGE PLAN: Transfer for higher level of care DISPOSITION: . DISCHARGE INSTRUCTIONS: 1. Not applicable ITEMS TO FOLLOWUP ON ON OUTPATIENT: 1. Dissecting aortic aneurysm DISCHARGE CONDITION: [Stable]. TIME SPENT ON DISCHARGE: Time spent coordinating transfer, talking with radiologists, CT surgeon here and CT surgeons at other facilities was greater than [90] minutes. Vital Signs/I&Os Vital Signs Date Time Temp Pulse Resp B/P (MAP) Pulse Ox O2 Delivery O2 Flow Rate FiO2 11/15/18 20:03 98.2 64 146/80 (102) 97 2.0 11/15/18 16:00 22 11/14/18 15:00 Room Air I&O- Last 24 Hours up to 6 AM 11/15/18 05:59 Intake Total 300 ml Output Total 2355 ml Balance -2055 ml Laboratory Data Labs 24H Laboratory Tests 2 11/15/18 04:27: Nucleated Red Blood Cells % (auto) 0.0, Anion Gap 5L, Glomerular Filtration Rate > 60.0, Blood Urea Nitrogen 11, Creatinine 0.82, Sodium Level 140, Potassium Level 3.8, Chloride Level 111H, Carbon Dioxide Level 24, Calcium Level 8.6L CBC/BMP Laboratory Tests 11/15/18 04:27 Red Blood Count 4.36, Mean Corpuscular Volume 97.9 H, Mean Corpuscular Hemoglobin 33.3 H, Mean Corpuscular Hemoglobin Concent 34.0, Red Cell Distrib ution Width 12.5, Calcium Level 8.6 L Discharge Medications Scheduled Amlodipine Besylate (Amlodipine Besylate) 10 Mg Tablet, 10 MG PO DAILY, (Re ported) Allergies Coded Allergies: No Known Drug Allergies (Verified Allergy, Unknown, 11/13/18) DION FAN MD Nov 15, 2018 22:21
--- NOTE | 2018-11-15 22:24 | REPVR ---
EXAM: CT Angiography Abdomen and Pelvis With Contrast EXAM DATE/TIME: 11/15/2018 9:40 PM CLINICAL HISTORY: 63 years old, male; Abnormal findings; Abnormal diagnostic imaging exam; Abnormality: Aorta; Exam and body structure: CT angio neck; Additional info: ? Disection TECHNIQUE: Imaging protocol: Axial computed tomographic angiography images of the abdomen and pelvis with intravenous contrast material. Coronal and sagittal reformatted images were created and reviewed. 3D rendering: MIP reconstructed images were created and reviewed. Radiation optimization: All CT scans at this facility use at least one of these dose optimization techniques: automated exposure control; mA and/or kV adjustment per patient size (includes targeted exams where dose is matched to clinical indication); or iterative reconstruction. Contrast material: ISOVUE 370;Contrast volume: 75 ml;Contrast route: IV; COMPARISON: No relevant prior studies available. FINDINGS: Tubes, catheters and devices: There is a Riley catheter present within the bladder. VASCULATURE: Aorta: There is no evidence of abdominal aortic dissection. There is no aortic aneurysm. There are areas of calcified plaque. There are also multiple areas of noncalcified aortic plaque projecting into the lumen. This is particularly prominent on series 406 images 87-89. This may be superimposed thrombus. Celiac trunk and mesenteric arteries: No occlusion or significant stenosis. Renal arteries: No occlusion or significant stenosis. Right iliac arteries: No occlusion or significant stenosis. Left iliac arteries: No occlusion or significant stenosis. ABDOMEN: Liver: The liver is normal. Gallbladder and bile ducts: The gallbladder is normal. Pancreas: The pancreas is normal. Spleen: The spleen is heterogeneous due to arterial phase imaging. It measures 15 cm which is mildly enlarged. Adrenals: The adrenal glands are normal. Kidneys and ureters: The kidneys are normal. No hydronephrosis. Stomach and bowel: Unremarkable. No obstruction. No mucosal thickening. Appendix: No evidence of appendicitis. PELVIS: Bladder: Unremarkable. No mass. Reproductive: Unremarkable as visualized. ABDOMEN and PELVIS: Intraperitoneal space: Unremarkable. No free air. No significant fluid collection. Bones/joints: There degenerative changes of the lumbar spine most severe at L5-S1. No fracture. Soft tissues: Unremarkable. Lymph nodes: Unremarkable. No enlarged lymph nodes. IMPRESSION: 1. No evidence of abdominal aortic aneurysm or dissection. 2. There is calcified and noncalcified plaques throughout the aorta. Large noncalcified plaques project into the lumen. Superimposed thrombus cannot be excluded. No significant stenosis or occlusion. Electronically signed by: Chase Patton On 11/15/2018 22:23:43 PM
[2018-11-16] MEDS ORDERED: LORazepam 1 MG TAB PO SCH (02:00)
--- NOTE | 2018-11-16 08:59 | CR ---
DATE OF CONSULTATION: 11/15/2018 REFERRING PROVIDER: Dr. Zhou Gibbs REASON FOR CONSULTATION: Unwitnessed seizure. Stef Singh is a 63-year-old male with history of alcoholism presently drinking 3-4 beers every single day and on occasion been drinking on whiskey. The patient presented to the hospital after being found making grunting noises with blood coming from his mouth, unresponsive and in a deep sleep like state by his . [facility] ([facility] He was very combative at the time of their arrival. There was no mention of any hemiparesis to suggest Kiko's paralysis according to the records. The patient had a CT scan, which a showed old chronic left parietal lobe wedge-shaped infarct. MRI of the brain revealed a acute to subacute, less than 5 mm right occipital lobe infarct. No mention of the prior chronic infarct was seen in the MRI. Brain scan however, it is clearly visible. The patient did have an EEG during this admission, which has been normal. Due to aggression and agitation, he has needed Precedex and as needed as Ativan. The patient did have a very large tongue laceration and he was incontinent to his bladder as well at the time of the seizure. The patient has a large tongue wound with purulent material over the surface of the tongue. He spike a temperature to 103 degrees Fahrenheit last night. The patient is presently on antibiotics. He resides in [place] and is on vacation here. The patient at the present time is oriented to his name and he knows he is in a [place] [facility]. He cannot tell me the correct year. He thinks it is 2007 and he also believes it is the month of October. The patient is able to follow all commands. At times, he appears to get slightly confused and agitated and wishes to leave the hospital to go see his dogs, and he states the intensive care unit (ICU) staff were available at bedside to consider necessity of a one-to-one sitter. 14-point review of systems obtained and is negative except as per history of present illness (HPI). PAST MEDICAL HISTORY: 1. Chronic hypertension. CT, MRI evidence of old chronic parietal right-sided ischemic stroke. 2. Alcohol abuse. The patient drinks 3-4 alcoholic beverages every day and last drink was supposedly Thursday. Seizure occurred Thursday night. Not typical for alcohol withdrawal seizure. FAMILY HISTORY: Hypertension. No history of seizures. SOCIAL HISTORY: The patient is a former smoker. Continues to drink alcohol on a daily basis. He minimizes, how much he is drinking. His states he drinks more than 3-4 beers a day. She was just unaware that he drinks whiskey. ALLERGIES: None. PAST SURGICAL HISTORY: None. HOME MEDICATIONS: - amlodipine 10 mg by mouth daily LABORATORY DATA His lab work shows lactic acid of 2.9, CPK 656, cholesterol 229, LDL 138, triglycerides 149, HDL 61. Urinalysis positive for benzodiazepine. The patient was administered benzodiazepine in the emergency room (ER). WBC 9.1. Glucose 118. Sodium 130. Potassium 3.8. MEDICATIONS (in the hospital): - aspirin 81 mg daily - Lipitor 40 mg daily - Precedex drip - Serax - Ativan as needed - heparin subcu PHYSICAL EXAMINATION: Blood pressure is 144/73, pulse rate 83, respiratory rate is 22, oxygenation 93% on 2 liters nasal cannula. Temperature is 106 degrees Fahrenheit maximum temperature (Tmax). Current height 6 feet 2 inches. Current weight is 91 kg. The patient is awake, alert, oriented to person and place but not to time. There is no dysarthria. The tongue shows a significant large gash with purulent material over the surface. Sensation V1, V2, V3 is intact to light touch. Pupils are round, reactive to light. Extraocular movements are intact with slight nystagmus. Hearing is subjectively present to finger rub. Tongue is midline. There is no pronator drift. Strength is 5/5 including bilateral deltoids, biceps, triceps, handgrip, iliopsoas, quadriceps, anterior tibialis. Deep tendon reflexes are 2+ throughout. Babinski signs are mute. Sensory is intact to light touch in all four extremities. Coordination: Normal [id number] without any gross signs of ataxia. Very minimal dysmetria was noted. Gait deferred. ASSESSMENT: 63-year-old male with ongoing chronic alcoholism, history of old remote right parietal wedge-shaped infarct. The patient himself was unaware of this. The patient binge drinks on a whiskey. Last drink was Thursday. Seizure occurred Thursday evening. The patient is at higher risk of having recurrent seizures given ongoing use of alcohol lowering seizure threshold. Abnormal imaging of the brain suggests that the brain is susceptible to potential seizures. EEG however, has been normal. Would recommend initiation of Keppra 5 mg IV twice a day indefinitely, and the patient has been given instructions not drive, operate heavy machinery, climb ladders, work from heights, or swimming alone, etc. for the next 12 months from the onset of the seizure date due to his ongoing risk factors of alcoholism. Continue medical care as per primary team, including management of possible alcohol withdrawal symptoms and agitation. Seizure precautions. For this stroke, continue aspirin 81 mg by mouth daily, Lipitor 40 mg by mouth daily. Blood pressure at this point can be made normal. Continue telemetry monitoring. Obtain echocardiogram. Obtain CT angiogram of head and neck. The patient apparently damaged the MRI machine due to his agitation. MRI machine is down. The patient can followup with neurology in [place], [place]. His was encouraged to contact his primary care provider to set up a referral.
[2018-11-17] MEDS ORDERED: LORazepam 1 MG TAB PO SCH (04:00)
== END 2018-11-15 23:22 | disposition short-term general hospital (02) | DRG 45 ==
LOC: M ED 23:23 → M ED INP 23:24 → M ICU 11-14 15:12 → OBSVTOIN 11-15 11:51
PROVIDERS: ADMIT Internal Medicine; ATTEND Internal Medicine
DX: I63.9 Cerebral infarction, unspecified (principal); I10 Essential (primary) hypertension; G83.84 Todd's paralysis (postepileptic); F10.20 Alcohol dependence, uncomplicated; Z87.891 Personal history of nicotine dependence